=== PATIENT | female | born 1960 | race Caucasian/White ===

== ENCOUNTER 2023-08-24 09:29 | Observation (INO) ==
--- NOTE | 2023-07-27 09:38 | PAT Medication Instructions ---
Medication Instructions Date of Service July 27, 2023 Home Medications amlodipine 10 mg tablet 10 mg PO QAM atenolol 100 mg tablet 100 mg PO QAM cholecalciferol (vitamin D3) 50 mcg (2,000 unit) tablet (Vitamin D3) 100 mcg PO QAM cyanocobalamin (vitamin B-12) 1,000 mcg tablet (Vitamin B-12) 3,000 mcg PO QAM elderberry fruit 200 mg capsule 200 mg PO QAM fish, borage, flaxseed oils-omega 3,6,9 cb #1 400 mg-400 mg-400 mg cap ([place] 3-6-9) 1 cap PO QAM levothyroxine 200 mcg tablet 200 mcg PO QAM losartan 100 mg tablet 100 mg PO QAM [id number] 8 mg-folic 400 mcg-K 50 mcg-lutein 300 mcg tablet (Centrum Silver Women) 1 tab PO QAM naproxen sodium 220 mg tablet (Aleve) 220 mg PO QAM omeprazole 20 mg tablet,delayed release 20 mg PO HS ASK your surgeon for instructions naproxen sodium 220 mg tablet (Aleve) 220 mg PO QAM STOP taking 2 weeks before surgery (or as soon as possible if surgery is within 2 weeks) elderberry fruit 200 mg capsule 200 mg PO QAM fish, borage, flaxseed oils-omega 3,6,9 cb #1 400 mg-400 mg-400 mg cap ([place] 3-6-9) 1 cap PO QAM DO NOT take the morning of surgery cholecalciferol (vitamin D3) 50 mcg (2,000 unit) tablet (Vitamin D3) 100 mcg PO QAM cyanocobalamin (vitamin B-12) 1,000 mcg tablet (Vitamin B-12) 3,000 mcg PO QAM losartan 100 mg tablet 100 mg PO QAM [id number] 8 mg-folic 400 mcg-K 50 mcg-lutein 300 mcg tablet (Centrum Silver Women) 1 tab PO QAM Take morning of surgery With a small sip of water, OTHERWISE NOTHING TO EAT OR DRINK AFTER MIDNIGHT: amlodipine 10 mg tablet 10 mg PO QAM atenolol 100 mg tablet 100 mg PO QAM levothyroxine 200 mcg tablet 200 mcg PO QAM Take evening before surgery omeprazole 20 mg tablet,delayed release 20 mg PO HS Other Notes If you have any questions please call us at [phone] or [phone] or [phone] or [phone]
--- NOTE | 2023-08-08 09:03 | Anesthesiology Consultation ---
Date of Service August 08, 2023 Assessment & Plan (1) Encounter for pre-operative examination: Chart Review Chart Review: Acceptable Risk for Surgery and Patient seen in Pre Admission Testing - Patient is NOT an ideal OPJ candidate (currently 23 hour obs; per patient- Dr. Gramajo plans to keep her as 23 hour obs ) Per PAT appt on 08/08/23, no recent illness/disease exposures, illness related symptoms, or recent illness/disease positive tests. Will leave to surgeon's discretion if preop Covid testing needed Patient last seen by PCP 07/10/23= seen for AWV. Patient scheduled for upcoming TKRdid well with first TKR. Unsure if she will need repeat preop. Will do labs today. Resume amlodipine 10 mg for BP control. Follow-up in 6 months. (Per patient- surgeon does not feel repeat PCP clearance needed) PCP letter 11/24/22 (prior to previous TKA) = low to moderate risk for complications during proposed surgery. Teaching & Discussion Pre-Anesthesia Teaching/Discussion Notes: Instructed NPO after midnight before surgery,except medications with 15 cc of water. Medication instructions provided according to the PAT guidelines. History Surgery Operation Date: 08/24/23 08:15 Proposed Procedures p Right Total Knee Arthroplasty - Vickey Gramajo MD Height/Weight Height: 5 ft 8.5 in Weight: 146.8 kg Allergies Allergy/AdvReac Type Severity Reaction Status Date / Time aspirin Allergy Unknown HEART Verified 07/26/23 16:07 FLUTTERS, PALPITATIONS Medications Home Medications Medication Instructions Recorded Confirmed Last Taken amlodipine 10 mg tablet 10 mg PO QAM 07/26/23 07/26/23 Unknown atenolol 100 mg tablet 100 mg PO QAM 07/26/23 07/26/23 Unknown cholecalciferol (vitamin D3) 50 100 mcg PO QAM 07/26/23 07/26/23 Unknown mcg (2,000 unit) tablet (Vitamin D3) cyanocobalamin (vitamin B-12) 3,000 mcg PO QAM 07/26/23 07/26/23 Unknown 1,000 mcg tablet (Vitamin B-12) elderberry fruit 200 mg capsule 200 mg PO QAM 07/26/23 07/26/23 Unknown fish, borage, flaxseed oils-omega 1 cap PO QAM 07/26/23 07/26/23 Unknown 3,6,9 cb #1 400 mg-400 mg-400 mg cap (Triple [place] 3-6-9) levothyroxine 200 mcg tablet 200 mcg PO QAM 07/26/23 07/26/23 Unknown losartan 100 mg tablet 100 mg PO QAM 07/26/23 07/26/23 Unknown kwdjetum-opdr-[id number] 8 mg-folic 400 1 tab PO QAM 07/26/23 07/26/23 Unknown mcg-K 50 mcg-lutein 300 mcg tablet (Centrum Silver Women) naproxen sodium 220 mg tablet 220 mg PO QAM 07/26/23 07/26/23 Unknown (Aleve) omeprazole 20 mg tablet,delayed 20 mg PO HS 07/26/23 07/26/23 Unknown release Past Medical History Medical History Asthma controlled, has not needed inhaler GERD (gastroesophageal reflux disease) well controlled and stable History of anesthesia reaction wakes angry "I usually come out swinging, they had to tie me down after my gallbladder was removed" History of skin cancer removed from face Hypertension Hypothyroidism Nausea and vomiting after administration of anesthetic agent with left knee replacement, 2022 Obesity Exercise / Class Metabolic Activity III < 4 Walking/Shop/Light housework (one flight of stairs - no chest pain, no SOB- goes very slow ) Past Surgical History Surgical History History of appendectomy History of bilateral total hip arthroplasty History of cholecystectomy History of tooth extraction History of total knee replacement left Hx of ovarian cystectomy Past Anesthesia History No Hx of Anesthesia Complications (with exception to PONV and combativeness post op ) and No Family Hx of Anesthesia Complications History of PONV No Hx of Motion Sickness and History of PONV Social History Smoking Status: Never smoker Do You Dip or Chew Tobacco: No Hx Alcohol Use: No Hx Substance Use: No substance use type: does not use Review of Systems S/p blood transfusion 2010- post op from hip surgery Patient denies chest pain, shortness of breath, dyspnea on exertion, cough, wheezing, palpitations. No hx of seizures, stroke, [place], apnea/snoring. No hx of blood clots Physical Exam Vital Signs VITALS BP 130/62 P 61 TEMP 97.6 SP02 94% RESP 16 Constitutional no acute distress ENMT Mouth: no TMJ clicking Thyromental Distance: > or= 3.5 Finger Breadths (3.5) Mallampati Class: III Missing side teeth and molars Permanent left sided bridge Crowns to molars Neck neck extension not limited Respiratory normal respiratory effort; no respiratory distress Auscultation: lungs clear to auscultation bilaterally; no wheezes Cardiovascular Rate/Rhythm: regular rate and regular rhythm Heart Sounds: no murmur Vessels: no carotid bruit Musculoskeletal Spine: no pain with cervical ROM Extremities: extremities normal to inspection Psychiatric Orientation: alert Lab Results Anesthesia Preop Results Results Anesthesia Widget: WBC 8.30 K/ul (4.8-10.8) 08/08/23 Hgb 15.1 g/dl (12.0-16.0) 08/08/23 Hct 44.7 % (37.0-47.0) 08/08/23 Plt 310 K/uL (130-400) 08/08/23 Na 138 mmol/L (136-145) 08/08/23 K 4.7 mmol/L (3.5-5.1) 08/08/23 Cl 105 mmol/L (98-107) 08/08/23 CO2 27 mmol/L (21-32) 08/08/23 BUN 23 mg/dl (6-23) 08/08/23 Creat 0.64 mg/dl (0.6-1.2) 08/08/23 Glucose Level 117 mg/dl (70-99(Fasting)) H 08/08/23 PT 10.7 Seconds (9.0-12.0) 08/08/23 PTT 28 Seconds (21-31) 08/08/23 INR 1.0 (0.9-1.1) 08/08/23 Urine Color Yellow 08/08/23 Urine Appearance Clear (Clear) 08/08/23 Urine pH 6.0 (4.5-7.5) 08/08/23 Urine Specific [place] 1.019 (1.000-1.030) 08/08/23 Urine Protein Negative (Negative) 08/08/23 Urine Glucose (UA) Negative (Negative) 08/08/23 Urine Ketones Negative (Negative) 08/08/23 Urine Blood Negative (Negative) 08/08/23 Urine Nitrite Negative (Negative) 08/08/23 Urine Bilirubin Negative (Negative) 08/08/23 Urine Urobilinogen Negative (Negative) 08/08/23 Urine Leukocyte Esterase Negative (Negative) 08/08/23 Blood Type O Positive 08/08/23 Antibody Screen NEGATIVE 08/08/23 Testing Laboratory Results 07/10/23= HGB A1C: 5.4 TSH: 2.550 FREE T4: 1.33 Electrocardiogram Date: 11/15/22 Sinus rhythm with frequent ventricular premature complexes at 65 bpm Chest X-Ray Date: 11/15/22 Mild cardiomegaly without evidence of acute cardiopulmonary disease Echocardiogram Date: 09/22/22 EF: 55% LV Function: normal Other Findings: no LVH Valvular Disease: + no significant valvular disease LV dimension show normal chamber size. No LV outflow obstruction at rest. Dilated left atrium Aortic root mildly dilatedmeasuring 4.3 cm to the proximal ascending aorta. No evidence of pulmonary hypertension. No evidence of pericardial effusion.
--- NOTE | 2023-08-23 07:59 | History & Physical Report ---
Date of Service August 23, 2023 Assessment & Plan (1) DJD (degenerative joint disease) of knee: Plan: Right total knee replacement with patient-specific implants most likely same-day surgery with home health provided by [facility] History of Present Illness Chief Complaint: Right knee pain Primary Care Provider: Ned Swanson Patient is a morbidly obese 63-year-old female with a longstanding history of knee arthritis bilateral. She is status post successful left total knee replacement performed 2022. She now presents with increasing right knee pain. The pain is associated with decreased range of motion and giving way and increased and severe deformity. She has failed both injections and bracing. She has radiographic evidence of end-stage arthritis and is admitted for elective knee replacement surgery. Although she is obese her body habitus is heavy in the upper body her lower extremities are quite thin Allergies Allergy/AdvReac Type Severity Reaction Status Date / Time aspirin Allergy Unknown HEART Verified 07/26/23 16:07 FLUTTERS, PALPITATIONS Home Medications Medication Instructions Recorded Confirmed Type amlodipine 10 mg tablet 10 mg PO QAM 07/26/23 07/26/23 History atenolol 100 mg tablet 100 mg PO QAM 07/26/23 07/26/23 History cholecalciferol (vitamin D3) 50 100 mcg PO QAM 07/26/23 07/26/23 History mcg (2,000 unit) tablet (Vitamin D3) cyanocobalamin (vitamin B-12) 3,000 mcg PO QAM 07/26/23 07/26/23 History 1,000 mcg tablet (Vitamin B-12) elderberry fruit 200 mg capsule 200 mg PO QAM 07/26/23 07/26/23 History fish, borage, flaxseed oils-omega 1 cap PO QAM 07/26/23 07/26/23 History 3,6,9 cb #1 400 mg-400 mg-400 mg cap (Triple [place] 3-6-9) levothyroxine 200 mcg tablet 200 mcg PO QAM 07/26/23 07/26/23 History losartan 100 mg tablet 100 mg PO QAM 07/26/23 07/26/23 History sxdfyrkf-pprl-ywgv 8 mg-folic 400 1 tab PO QAM 07/26/23 07/26/23 History mcg-K 50 mcg-lutein 300 mcg tablet (Centrum Silver Women) naproxen sodium 220 mg tablet 220 mg PO QAM 07/26/23 07/26/23 History (Aleve) omeprazole 20 mg tablet,delayed 20 mg PO HS 07/26/23 07/26/23 History release Past Med/Surg History Medical History (Updated 08/23/23 @ 07:59 by Vickey Gramajo MD) Obesity Nausea and vomiting after administration of anesthetic agent with left knee replacement, 2022 History of anesthesia reaction wakes angry "I usually come out swinging, they had to tie me down after my gallbladder was removed" GERD (gastroesophageal reflux disease) well controlled and stable Hypothyroidism History of skin cancer removed from face Hypertension Asthma controlled, has not needed inhaler Surgical History History of bilateral total hip arthroplasty History of total knee replacement left Hx of ovarian cystectomy History of appendectomy History of cholecystectomy History of tooth extraction Social History Smoking Status: Never smoker Second Hand Exposure: No; Do You Dip or Chew Tobacco: No; Tobacco Cessation Education Requested by Patient: No Hx Alcohol Use: No Hx Substance Use: No Preferred Language: Green[place]ic 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 Neck: Supple no bruits Heart: Regular rate and rhythm no gallops or murmurs Lungs: Breath sounds distant but clear and present in all hemphill Abdomen: Markedly obese soft nontender bowel sounds are positive Extremities: Right knee shows valgus deformity range of motion passively is 5 to 105 degrees with 2 to 3 mm lateral joint line laxity effusion and pain on range of motion. Neurological and vascular: Intact Results & Data Results & Data Vital Signs (Past 12 Hours) Blood pressure 168/94 Pulse 65
[~2023-08-24 09:29] MED LIST: ROPIVACAINE 0.5% 5 MG/ML 30 ML VIAL ONE
[2023-08-24] MEDS: LR 500ML BOLUS, THEN 15ML/HR IV SCH (10:00)
[2023-08-24] MEDS: LR 60ML/HR IV SCH (10:10)
[2023-08-24] MEDS: ACETAMINOPHEN 500 MG TAB PO SCH ×2 (10:11→15:53)
[2023-08-24] MEDS: GABAPENTIN 600 MG DOSE PO SCH (10:11)
[2023-08-24] MEDS: METOCLOPRAMIDE HCL 10 MG TABLET PO SCH (10:11)
[2023-08-24] MEDS: FAMOTIDINE 20 MG TAB PO SCH (10:11)
[2023-08-24] MEDS: CeleBREX 200 MG CAP PO SCH ×2 (10:11→20:43)
[2023-08-24] MEDS: traMADol HCL 50 MG TABLET PO SCH (10:12)
[2023-08-24] MEDS: dexAMETHasone**PF** 10 MG/ML VIAL IV SCH (10:12)
[2023-08-24] MEDS ORDERED: KETOROLAC 30 MG/ML VIAL ONE (10:28)
[2023-08-24] MEDS ORDERED: PROPOFOL IV EMULSION 10 MG/ML 20 ML VIAL IV ONE ×2 (10:28→10:36)
[2023-08-24] MEDS ORDERED: MIDAZOLAM HCL 1 MG/ML 2ML VIAL ONE (10:28)
--- NOTE | 2023-08-24 10:31 | History & Physical Bridge Note ---
Date of Service August 24, 2023 History & Physical Bridge Note I have examined the patient, reviewed the History & Physical and in the interval since the performance of the History & Physical I have noted the following changes of clinical significance: no changes noted
[2023-08-24] MEDS: APREPITANT 40 MG CAP PO ONE (10:53)
[2023-08-24] MEDS ORDERED: HYDROmorphone INJ 2 MG/ML SYR/VIAL IV PRN (10:56)
[2023-08-24] MEDS ORDERED: ATROPINE SULFATE 0.1 MG/ML 10ML SYR IV PRN (10:56)
[2023-08-24] MEDS ORDERED: ONDANSETRON INJ 2 MG/ML 2 ML VIAL IV PRN ×2 (10:56→15:38)
[2023-08-24] MEDS ORDERED: ePHEDrine sulfate 50 MG/ML AMP IV PRN (10:56)
[2023-08-24] MEDS: TRANEXAMIC ACID 1,000 MG **IV Pre-op IV SCH (11:57)
[2023-08-24] MEDS: ceFAZolin 3000MG 3,000 MG/72.5 ML BAG IV SCH (12:13)
[2023-08-24] MEDS: ORTHO JOINT ANESTHETIC ONE (12:45)
[2023-08-24] MEDS ORDERED: ePHEDrine sulfate 50 MG/5 ML SYR ONE (12:46)
[2023-08-24] MEDS: ROPIV 0.5% 246mg, Ketorolac 30mg, EPINEPHrine 0.5mg in NSS INFIL SCH (13:10)
[2023-08-24] MEDS: TRANEXAMIC ACID 1,000 MG **IV Intra-op IV SCH (13:22)
--- NOTE | 2023-08-24 13:29 | Post Operative Brief Note ---
Immediate Post Op Note v1 Date of Surgery August 24, 2023 Pre & Post Diagnosis Operation Date: 08/24/23 11:15 Pre-Op Diagnosis: degenerative joint disease of knee Post-Op Diagnosis: degenerative joint disease of knee I identified the patient and participated in the time-out.: Yes Procedure Operation Date: 08/24/23 11:15 Actual Procedures p Right Total Knee Replacement(Right) - Vickey Gramajo MD Surgeon Vickey Gramajo MD Cell Changer oPli Watson PA-C Estimated Blood Loss 100 Findings Consistent with Post-Op Diagnosis Drains Hemovac Drain
[2023-08-24] MEDS: fentaNYL citrate PF 100 MCG/2 ML VIAL IV PRN (14:02)
[2023-08-24] MEDS ORDERED: traMADol HCL 50 MG TABLET PO PRN (15:38)
[2023-08-24] MEDS ORDERED: MAGNESIUM HYDROXIDE SUSP 30 ML UDC PO PRN (15:38)
[2023-08-24] MEDS ORDERED: bisacodyL 10 MG SUPP PR PRN (15:38)
[2023-08-24] MEDS ORDERED: NALOXONE HCL 0.4 MG/1 ML VIAL/CARP IV PRN (15:38)
[2023-08-24] MEDS ORDERED: METOCLOPRAMIDE HCL INJ 5 MG/ML 2 ML VIAL IV PRN (15:38)
[2023-08-24] MEDS: DROPERIDOL 5 MG/2 ML VIAL ONE (15:40)
[2023-08-24] MEDS: SODIUM CHLORIDE 0.9% 1,000 ML IV SCH (15:50)
--- NOTE | 2023-08-24 16:16 | Operative Report ---
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 The right lower extremity was prepared with ChloraPrep and draped sterilely. A surgical timeout was performed. A midline incision was made through a very large subcutaneous fat layer. This made the exposure difficult and added increased time to the procedure. Hemos tasis was obtained. A median parapatellar arthrotomy was performed exposing the severely arthritic knee. The patient's large body habitus and large osteophytes made the exposure difficult. Attention was first turned to the patella to enhanced exposure. The patella was freehand cut and sized for a 35 button. This did relax the extensor mechanism and did enhance exposure to the lateral side of the knee. The patient matched femoral block was applied. Femoral distal rotation and resection were setting completed. Multiple osteophytes were removed. The posterior cruciate ligament was excised. The 4-in-1 block was then attached and the femoral preparation was completed. Attention was turned to the tibia. The meniscal fragments were excised. The patient matched tibial block was applied. Tibial resection was completed. Multiple loose bodies were removed. Soft tissue balancing was completed then in flexion and extension. A trial reduction with the above-mentioned components was performed. This showed very good tensioning and stability on the collateral ligaments from full extension to about 100 degrees of flexion which was limited by the size of the patient's leg. The patella tracked well throughout. The trial components were removed. The capsule was prepared with the orthopedic cocktail. After irrigation and drying the components were cemented using Mesfin NCB cement cementing the tibia first, femur second, and the patella third. When the cemented hardened the knee was checked and showed similar stability and tracking. The wound was irrigated with 500 cc of experience irrigation. A Hemovac drain was placed. The capsulotomy was then closed with interrupted [id number] sutures of 1 Vicryl and a running suture of 0 strata fix. The subcutaneous fat layer was closed in multiple layers deep with 0 strata fix. The skin was closed with a running subcuticular stitch of 3 oh strata fix. Dermabond Steri-Strips and a negative pressure wound dressing were applied followed by compressive bandage. The patient was returned to her bed in stable condition. Note: Poli ARTIS was present and assisted throughout due to the complicated and difficult nature of this case. He help with preparation and set up, he assisted with hemostasis and exposure throughout the procedure. He also closed the capsule subcutaneous and skin layers and applied the postop dressing. Note: This patient's morbidly obese body habitus added an element of increased difficulty and increased time to the surgical procedure. I attest to the content of the Intraoperative Record and any orders documented therein. Any exceptions are noted below.
[2023-08-24] MEDS: ceFAZolin 2000MG 2,000 MG/15 ML SYR IV SCH (20:40)
[2023-08-24] MEDS: SENNA 8.6 MG TAB PO SCH (20:42)
[2023-08-24] MEDS: PANTOprazole 40 MG TAB PO SCH (20:42)
[2023-08-24] MEDS: DOCUSATE SODIUM 100 MG CAP PO SCH (20:42)
[2023-08-25] MEDS: LEVOTHYROXINE SODIUM 200 MCG TABLET PO SCH (05:33)
[2023-08-25] MEDS ORDERED: LR 500ML BOLUS, THEN 15ML/HR IV SCH (06:00)
--- NOTE | 2023-08-25 07:57 | Orthopedic Progress Note ---
Date of Service August 25, 2023 Assessment & Plan (1) DJD (degenerative joint disease) of knee: Plan: Patient is doing extremely well. She is very independent and had done well with her previous knee. I believe that she is capable of discharge to home. She will be followed by [facility]. Today we did review wound care and her medication protocol. As long as therapy is successful in the morning and she is deemed safe she will be discharged to home and will begin [facility] on August 25 Admission and Anticipated Discharge Date Admission Date: August 24, 2023 Subjective Postoperative day #1 right total knee replacement Patient is doing very well. She is ambulating independently in the room and voices no complaints or problems at all. She was required to stay because of problems with coordination of PT OT to assess her discharge capability on the night of surgery. Physical Exam Physical Exam: Patient is awake alert and oriented x 3. She is ambulating in her room with the use of a walker and voices no complaints of pain. Her dressing is clean dry and intact. Hemovac drainage is minimal. She is neurologically and vascularly intact. She has a range of motion of 0 to 95 degrees at the bedside. Results & Data Vital Signs (Past 12 Hours) Vital Signs Temp Pulse Resp BP Pulse Ox O2 Del Method 08/25/23 07:07 36.4 C L 62 16 146/73 H 97 Room Air 08/25/23 05:40 36.5 C 59 L 18 151/85 H 97 Room Air 08/25/23 02:00 36.4 C L 64 18 124/78 96 Room Air 08/24/23 22:56 36.4 C L 62 18 123/72 95 Room Air 08/24/23 20:15 Room Air
[2023-08-25] MEDS: amLODIPine BESYLATE 5 MG TAB PO SCH (08:50)
[2023-08-25] MEDS: LOSARTAN POTASSIUM 50 MG TAB PO SCH (08:50)
[2023-08-25] MEDS: CHOLECALCIFEROL 25 MCG (1000 UNITS) TAB PO SCH (08:50)
[2023-08-25] MEDS: CYANOCOBALAMIN (B-12) 500 MCG TABLET PO SCH (08:50)
[2023-08-25] MEDS: ATENOLOL 50 MG TABLET PO SCH (08:50)
[2023-08-25] MEDS: CYANOCOBALAMIN (B-12) 2,500 MCG TABLET PO SCH (08:50)
[2023-08-25] MEDS: MULTIVITAMIN TAB PO SCH (08:51)
--- NOTE | 2023-08-28 10:59 | Discharge Summary ---
Date of Service August 28, 2023 Admission HPI Per Admitting Provider Patient is a morbidly obese 63-year-old female with a longstanding history of knee arthritis bilateral. She is status post successful left total knee replacement performed 2022. She now presents with increasing right knee pain. The pain is associated with decreased range of motion and giving way and increased and severe deformity. She has failed both injections and bracing. She has radiographic evidence of end-stage arthritis and is admitted for elective knee replacement surgery. Although she is obese her body habitus is heavy in the upper body her lower extremities are quite thin Admission Exam Per Admitting Provider Physical Exam: Weight 146 kg BMI 49 General: Woman who appears slightly older than her stated age again morbidly obese body habitus especially in the upper torso HEENT: NCAT, EOMI, PERRLA. Neck: Supple no bruits Heart: Regular rate and rhythm no gallops or murmurs Lungs: Breath sounds distant but clear and present in all hemphill Abdomen: Markedly obese soft nontender bowel sounds are positive Extremities: Right knee shows valgus deformity range of motion passively is 5 to 105 degrees with 2 to 3 mm lateral joint line laxity effusion and pain on range of motion. Neurological and vascular: Intact Principal Diagnosis Right Knee Osteoarthritis Discharge Data Allergies Allergy/AdvReac Type Severity Reaction Status Date / Time aspirin Allergy Unknown HEART Verified 08/24/23 10:05 FLUTTERS, PALPITATIONS Procedures Performed Operation Date: 08/24/23 11:15 Actual Procedures p Right Total Knee Replacement(Right) - Vickey Gramajo MD Ordered Studies 08/24/23 05:00 US - OR guided needle placemen Routine Hospital Course (1) DJD (degenerative joint disease) of knee: Patient: JOSÉ MIGUEL GO Admit Date: 08/24/23 MR#: [id number] Att Phy: Vickey Gramajo MD Acct ID: [id number] Amara Phy: Ned Swanson M.D. Date: 1960 Fam Phy: Age: 63 Location: 3E Sex: F Room/Bed: E304-1 cc: ~ *NOTICE TO RECEIVING GREEN PARTY/AGENCY This information is strictly Confidential and protected under [place] law. [place] law prohibits you from making any further disclosure of this information unless further disclosure is expressly permitted by the written consent of the person to whom it pertains or is authorized by law. A general authorization for the release of medical or other information is not sufficient for this purpose. Hospital accepts no responsibility if the information is made available to any other person, INCLUDING THE PATIENT. Date of Service August 25, 2023 Assessment & Plan (1) DJD (degenerative joint disease) of knee: Plan: Patient is doing extremely well. She is very independent and had done well with her previous knee. I believe that she is capable of discharge to home. She will be followed by [facility]. Today we did review wound care and her medication protocol. As long as therapy is successful in the morning and she is deemed safe she will be discharged to home and will begin [facility] on August 25 Admission and Anticipated Discharge Date Admission Date: August 24, 2023 Subjective Postoperative day #1 right total knee replacement Patient is doing very well. She is ambulating independently in the room and voices no complaints or problems at all. She was required to stay because of problems with coordination of PT OT to assess her discharge capability on the night of surgery. Physical Exam Physical Exam: Patient is awake alert and oriented x 3. She is ambulating in her room with the use of a walker and voices no complaints of pain. Her dressing is clean dry and intact. Hemovac drainage is minimal. She is neurologically and vascularly intact. She has a range of motion of 0 to 95 degrees at the bedside. Results & Data Vital Signs (Past 12 Hours) Vital Signs Temp Pulse Resp BP Pulse Ox O2 Del Method 08/25/23 07:07 36.4 C L 62 16 146/73 H 97 Room Air 08/25/23 05:40 36.5 C 59 L 18 151/85 H 97 Room Air 08/25/23 02:00 36.4 C L 64 18 124/78 96 Room Air 08/24/23 22:56 36.4 C L 62 18 123/72 95 Room Air 08/24/23 20:15 Room Air Signed By: <Electronically signed by Vickey Gramajo MD> 08/25/23 0757 Created: 08/25/23 0755 The status of this report is Signed. Total Time Total Time Spent Total Time Spent (In Minutes): 5 Discharge Plan Discharge Items Patient Disposition: Home - Home Health Services Reason For Visit: Right Knee Osteoarthritis Discharge Diagnosis: Right knee osteoarthritis Activity: Per Instructions section Weightbearing: Full weightbearing Non-emergency contact: Surgeon Call non-emergency contact if: you have any medication questions, your pain is not controlled, your temperature is above 101.5, your wound has increased redness and your wound has increased drainage Follow-up/Referrals: [facility] [Outside] (as per surgeon's office) Vickey Gramajo MD [Surgeon] - ( follow-up with Dr. Gramajo or his PA in 2 weeks from the day of surgery for your first postoperative visit.) Ned Swanson [Primary Care Provider] - Diet: Regular Addtl Attending Provider Instructions: DR. DOWD POST-OP INSTRUCTIONS FOR TOTAL KNEE ARTHROPLASTY PLEASE REVIEW PRIOR TO SURGERY Day of Surgery You will be admitted and meet the nursing and anesthesia team. Dr. Gramajo will see you and sign your operative side. Anesthesia will place your spinal anesthetic in the pre-op area Your surgery will be performed and last approximately 1 2 hours. Upon waking, you will notice a dressing and ice pack on your knee. If you purchased the [employer] Cold Compression unit, this will be applied to your knee. You will remain in the recovery room for 1 2 hours, then be transferred to your room in the ambulatory surgical area if you are to go home the same day of your surgery or on the orthopedic floor if you will be staying overnight. Most of Dr. Dowd total knee patients go home the same day as surgery. This depends on how well you feel. Patients generally seem to feel better in their own home environment, and the risk of exposure to bad bugs is much lower. (Your post-operative medications will be sent to your pharmacy approximately 1-2 days prior to your procedure) Day 1 post-op (if you have an overnight stay in the hospital) You will have bloodwork drawn in the morning Physical therapy will evaluate you in the morning. You will start getting out of bed and ambulating with a walker. They will instruct you on knee motion exercises. Use your cold packs or your cold compression unit as instructed. This will decrease swelling and minimize pain. human services program specialist will discuss your discharge plan. Discharge will generally be around 11am Day 1 post-op (all patients) You will be taking Aspirin 81mg twice for 4 weeks to decrease the risk of a blood clot. You will most likely have a drain and CHANELLE (superficial wound VAC) dressing post-operatively covered by an jerry wrap dressing. (home nurse will remove jerry wrap/drain) This will keep your incision dry as well as aid in early healing. The batteries will wear out and the VAC will lose suction around day 6 7 post-op. At that time, you may turn off the device and disconnect it from your dressing. You may remove your dressing 10 days after surgery if it becomes bothersome and irritating to your skin. If the dressing appears to be saturated, please call our office. Day 2-14 post-op You will have a home nurse visit to assess your status and remove your jerry wrap/drain on post-op day 2. You are permitted to shower immediately with the VAC. Do not soak the dressing let the shower flow on your opposite side, and pat dry the plastic. Once the dressing has been removed, you may shower normally with the incision exposed. Do not rub the area simply let soapy water run over the incision and lightly pat dry. Therapy will begin on post-op day 3. Your therapy prescription will be sent to your home therapy company/therapist You should continue doing your home exercises Week 2 post-op and forward You will have your first post-op appointment 2 weeks after surgery which should have been scheduled for you by our office. This appointment will be to check your incision, progression of therapy and pain control. You will continue to use a cane or a walker until you feel safe enough to stop using it. You will have a 6-week post-op appointment which should have been scheduled for you by our office. X-rays will be taken to evaluate the prosthesis. You will continue to advance range of motion. By 3 to 4 months after surgery, you should have almost full range of motion and may resume most activities. You may have some pain around the knee with certain activities this is completely normal. You will be scheduled for a 1-year post-op appointment to assess your outcome (sooner if Dr. Gramajo feels it is necessary). Pain: The immediate post-op period after knee replacement surgery can be painful. You should take your pain medicine as you need it, especially prior to physical therapy and bedtime. Your pain WILL get better, and you may transition to a milder pain medicine (with less side effects, such as Tylenol) as soon as possible. It is common to have pain at night that interferes with sleep this can last for several months. Pain medicines can cause nausea and constipation do not take more than you need. You may be prescribed one or more of the following MEDICATIONS: 1. Celebrex this controls inflammation and makes pain medications more effective it will be taken once or twice a day 2. Tylenol a pain medicine that can help to decrease your pain you should take 1000mg three times a day 3. Tramadol a pain medicine that can be taken every 4-6 hours (instead of Oxycodone) as needed to control your pain 4. Oxycodone a VERY strong pain medicine that can be taken every 4- 6 hours (instead of Tramadol) as needed to control your pain. This medication has the most side effects. 5. Aspirin 81mg blood thinning medication to help minimize the risk of development of blood clots unfortunate side effects of pain medicine include nausea and constipation if you experience these issues or have any questions about your post-op medications, call [facility] at for assistance/advice on how to manage these issues Physical therapy is a VERY important part of knee replacement surgery. The office will arrange for a therapist to come to your home to instruct you on exercises. It is very important to practice on your own (or with the assistance of a family member). While in the hospital, you will be shown a series of home exercises you should perform these exercises 3 4 times daily in addition to physical therapy. After the completion of home therapy (approx. 2 weeks), most therapy exercises can be done on your own. You should get up to walk several times a day. Try not to stand longer than 1 hour at a time to minimize swelling. If you develop swelling, you need to elevate your legs/feet at or above the level of your heart. You may progress from walker to cane to ambulating independently as you feel comfortable. Unless it is an emergency, YOU ARE NOT PERMITTED TO HAVE ANY DENTAL CLEANING/WORK UNTIL 3 MONTHS AFTER SURGERY. You will be required to take an antibiotic prior to any dental cleaning or dental work in order to prevent your joint prothesis from getting infected. This medication is a one time per visit dose to be taken one hour prior to appointment. You may call our office for this prescription or your dentist may be willing to prescribe the medication. Remember to contact [facility] at if you develop any signs of infection which include increased swelling, pain, redness, drainage from incision, warmth, fever, chills or severe pain unrelieved by pain medication. If you develop any chest pain or shortness of breath, you should proceed immediately to the closest Emergency Room. It is normal to run a low-grade fever after surgery. If your fever is consistent at 101.0 or higher, you will need to contact the office. Stand-Alone Forms: My [facility] Medications and DC Order Prescriptions: Continued atenolol 100 mg Tablet 100 mg PO QAM levothyroxine 200 mcg Tablet 200 mcg PO QAM omeprazole 20 mg Tablet,Delayed Release (Dr/Ec) 20 mg PO HS amlodipine 10 mg Tablet 10 mg PO QAM losartan 100 mg Tablet 100 mg PO QAM cyanocobalamin (vitamin B-12) [Vitamin B-12] 1,000 mcg Tablet 3,000 mcg PO QAM elderberry fruit 200 mg Capsule 200 mg PO QAM cholecalciferol (vitamin D3) [Vitamin D3] 50 mcg (2,000 unit) Tablet 100 mcg PO QAM fish,bora,flax oils-om3,6,9no1 [Triple Webster 3-6-9] 400-400-400 mg Capsule 1 cap PO QAM Centrum Silver Women 8 mg iron-400 mcg-50 mcg Tablet 1 tab PO QAM Discontinued naproxen sodium [Aleve] 220 mg Tablet 220 mg PO QAM Admission Data Admit Date/Time: 08/24/23 13:37 Attending Provider: Vickey Gramajo Admit Provider: Vickey Gramajo Primary Care Provider: Ned Swanson Other Providers: [facility]Home [facility] Other Interventions: Discharge Summary Assessment (RN) Last Done: 08/25/23 12:54
--- NOTE | 2023-08-29 11:52 | Anesthesiology Progress Note ---
Date of Service August 29, 2023 Anesthesia Post Procedure Pain Intensity Right Knee: Pain Intensity: 2 Transfer of Care Handoff Completed per policy Notes Mental Status: alert / awake / arousable and participated in evaluation Patient Amnestic to Procedure: Yes Nausea / Vomiting: adequately controlled Pain: adequately controlled Airway Patency, RR, SpO2: stable & adequate BP & HR: stable & adequate Hydration State: stable & adequate Anesthetic Complications: no major complications apparent and Pt Satisfied with anesthetic care Notes: pt evaluated before d/c
== END 2023-08-25 13:48 | disposition home health service (06) ==
LOC: 3E 09:29 → ASU 09:29